=== PATIENT | male | born 1990 | race Caucasian/White ===

== ENCOUNTER 2023-11-29 18:14 | Emergency (ER) | payer SELFPAY ==
[~2023-11-29] VITALS: Ht 172.7 cm; Wt 65.0 kg
[2023-11-29 18:25] VITALS: BP 113/66; PULSE 86; RESP 18; TEMP 98.1; O2SAT 97
== END 2023-11-29 20:42 | disposition left against medical advice (07) ==
LOC: ER 18:25
DX: R07.89 Other chest pain (principal); Z53.21 Procedure and treatment not carried out due to patient leaving prior to being seen by health care provider
CPT/HCPCS: 93005; 99283